=== PATIENT | female | born 1990 | race Caucasian/White ===

== ENCOUNTER 2016-11-10 14:21 | Emergency (ER) | payer SELFPAY ==
[~2016-11-10] VITALS: Ht 160 cm; Wt 72.0 kg
[~2016-11-10 14:21] MED LIST: IBUPROFEN600 MG PO; PRE-NATAL PO
[2016-11-10 15:00] LABS: URINE BILIRUBIN - DIPSTICK NEGATIVE (NEGATIVE); URINE BLOOD DIPSTICK TRACE-INTACT (NEGATIVE); URINE CLARITY CLEAR; URINE COLOR YELLOW; URINE GLUCOSE - DIPSTICK NEGATIVE (NEGATIVE); URINE KETONE NEGATIVE (NEGATIVE); URINE LEUK ESTERASE TRACE (NEGATIVE); URINE NITRITE - DIPSTICK NEGATIVE (Negative); URINE PROTEIN - DIPSTICK NEGATIVE (NEG-TRACE); URINE SPECIFIC GRAVITY 1.025; URINE UROBILINOGEN - DIPSTICK 0.2 E.U./dL (0.2)
[2016-11-10 15:11] LABS: HEMATOCRIT 39.3 % (37.0-47.0); HEMOGLOBIN 13.4 g/dl (12.0-16.0); IMMATURE GRANULOCYTES 0.3 % (0.0-1.0); MEAN CELL VOLUME 88.9 fL CALC (80.0-100.0); MEAN CORPUSCULAR HGB 30.3 pG CALC (26.0-32.0); MEAN CORPUSCULAR HGB CONC 34.1 g/L CALC (32.0-36.0); NEUT# 4.32 thou/uL (2.00-7.15); RED BLOOD COUNT 4.42 mill/uL (4.20-5.60); RED CELL DISTRI WIDTH 13.2 % (11.5-15.5)
[2016-11-10 15:14] LABS: ALBUMIN 4.3 g/dL (3.2-5.0); ALKALINE PHOSPHATASE 66 u/l (38-126); ANION GAP 16 (6-22 (CALC)); BILIRUBIN, TOTAL 0.5 mg/dL (0.0-1.4); BUN 11 mg/dL (7-17); BUN/CREATININE RATIO 15 (12-20 (CALC)); CALCIUM 9.4 mg/dL (8.4-10.2); CARBON DIOXIDE 21 mmol/l (22-30); CHLORIDE 109 mmol/l (95-108); CREATININE 0.8 mg/dL (0.5-1.0); GFR > 60 ML/MIN (>=60 (CALC)); GFR FOR AFR.AMER. > 60 ML/MIN (>=60 (CALC)); GLUCOSE 87 mg/dL (65-105); POTASSIUM 3.9 mmol/l (3.5-5.1); SGOT/AST 16 u/l (14-36); SGPT/ALT 28 u/l (9-52); SODIUM 142 mmol/l (137-146); TOTAL PROTEIN 7.3 g/dL (6.3-8.2)
[2016-11-10 15:26] LABS: MYOGLOBIN 20 ng/mL (0 - 62)
[2016-11-10 15:45] VITALS: BP 140/97
== END 2016-11-10 15:49 | disposition home or self-care (01) | DRG 312 ==
LOC: ED 14:21
PROVIDERS: Emergency Medicine
DX: R55 Syncope and collapse (principal); F17.210 Nicotine dependence, cigarettes, uncomplicated; R07.9 Chest pain, unspecified; Z73.3 Stress, not elsewhere classified; R06.02 Shortness of breath; Y92.009 Unspecified place in unspecified non-institutional (private) residence as the place of occurrence of the external cause

== ENCOUNTER 2017-08-12 10:56 | Emergency (ER) | payer SELFPAY ==
[~2017-08-12] VITALS: Ht 160 cm; Wt 77.6 kg
[2017-08-12 11:39] LABS: URINE BACTERIA FEW hpf; URINE BILIRUBIN - DIPSTICK NEGATIVE (NEGATIVE); URINE BLOOD DIPSTICK LARGE (NEGATIVE); URINE CLARITY HAZY; URINE COLOR DK. YELLOW; URINE EPITHELIAL CELLS FEW EPI/hpf (0-FEW); URINE GLUCOSE - DIPSTICK NEGATIVE (NEGATIVE); URINE KETONE NEGATIVE (NEGATIVE); URINE LEUK ESTERASE SMALL (NEGATIVE); URINE NITRITE - DIPSTICK NEGATIVE (Negative); URINE PROTEIN - DIPSTICK NEGATIVE (NEG-TRACE); URINE RBC 25-50 RBC/hpf (0-5); URINE UROBILINOGEN - DIPSTICK 0.2 E.U./dL (0.2)
[2017-08-12 11:50] LABS: HEMOGLOBIN 12.6 g/dl (12.0-16.0); IMMATURE GRANULOCYTES 0.3 % (0.0-1.0); MEAN CELL VOLUME 91.8 fL CALC (80.0-100.0); MEAN CORPUSCULAR HGB 30.4 pG CALC (26.0-32.0); MEAN CORPUSCULAR HGB CONC 33.2 g/L CALC (32.0-36.0); RED BLOOD COUNT 4.14 mill/uL (4.20-5.60); RED CELL DISTRI WIDTH 13.3 % (11.5-15.5)
[2017-08-12] MEDS ORDERED: KEFLEX500 M1 PO (13:35)
[2017-08-12 13:55] VITALS: BP 136/83
== END 2017-08-12 13:55 | disposition home or self-care (01) | DRG 690 ==
LOC: ED 10:56
DX: N39.0 Urinary tract infection, site not specified (principal); N92.0 Excessive and frequent menstruation with regular cycle

== ENCOUNTER 2018-07-11 13:12 | Emergency (ER) | payer OTHER ==
[~2018-07-11 13:12] MED LIST changes: +KEFLEX500 M1 PO
== END 2018-07-11 13:47 | disposition left against medical advice (07) | DRG 951 ==
LOC: ED 13:12 → LWOBS 13:47
DX: Z91.19 Patient's noncompliance with other medical treatment and regimen (principal)

== ENCOUNTER 2018-09-06 20:53 | Emergency (ER) | payer OTHER ==
[~2018-09-06] VITALS: Ht 160 cm; Wt 72.0 kg
[2018-09-06 22:02] LABS: HEMATOCRIT 29.6 % (37.0-47.0); HEMOGLOBIN 10.2 g/dl (12.0-16.0); IMMATURE GRANULOCYTES 0.8 % (0.0-5.0); MEAN CELL VOLUME 93.4 fL CALC (80.0-100.0); MEAN CORPUSCULAR HGB 32.2 pG CALC (26.0-32.0); MEAN CORPUSCULAR HGB CONC 34.5 g/L CALC (32.0-36.0); NEUT# 5.1 thou/uL (2.00-7.15); RED BLOOD COUNT 3.17 mill/uL (4.20-5.60); RED CELL DISTRI WIDTH 12.8 % (11.5-15.5)
[2018-09-06 22:22] LABS: ALKALINE PHOSPHATASE 75 u/l (38-126); ANION GAP 11 (6-22 (CALC)); BILIRUBIN, TOTAL 0.3 mg/dL (0.0-1.4); BUN 7 mg/dL (7-17); BUN/CREATININE RATIO 16 (12-20 (CALC)); CARBON DIOXIDE 20 mmol/l (22-30); CHLORIDE 109 mmol/l (95-108); CREATININE 0.5 mg/dL (0.5-1.0); GFR > 60 ML/MIN (>=60 (CALC)); GFR FOR AFR.AMER. > 60 ML/MIN (>=60 (CALC)); POTASSIUM 3.5 mmol/l (3.5-5.1); SGOT/AST 12 u/l (14-36); SODIUM 137 mmol/l (137-146)
[2018-09-06 22:25] LABS: TOTAL PROTEIN 5.7 g/dL (6.3-8.2)
[2018-09-06 22:39] LABS: URINE BILIRUBIN - DIPSTICK NEGATIVE (NEGATIVE); URINE BLOOD DIPSTICK NEGATIVE (NEGATIVE); URINE COLOR YELLOW; URINE GLUCOSE - DIPSTICK NEGATIVE (NEGATIVE); URINE KETONE TRACE mg/dL (NEGATIVE); URINE LEUK ESTERASE NEGATIVE (NEGATIVE); URINE NITRITE - DIPSTICK NEGATIVE (Negative); URINE PH 6.5 (4.5-8.0); URINE PROTEIN - DIPSTICK NEGATIVE (NEG-TRACE)
[2018-09-06] MEDS ORDERED: HYDROXYZ HCL25 MG PO (23:22)
[2018-09-06 23:35] VITALS: BP 98/67
== END 2018-09-06 23:35 | disposition home or self-care (01) ==
LOC: ED 20:53
PROVIDERS: Family Medicine
DX: O26.892 Other specified pregnancy related conditions, second trimester (principal); F41.9 Anxiety disorder, unspecified; R07.89 Other chest pain; R55 Syncope and collapse; R10.2 Pelvic and perineal pain; R42 Dizziness and giddiness; Z3A.25 25 weeks gestation of pregnancy

== ENCOUNTER 2018-12-09 08:51 | Emergency (ER) | payer OTHER ==
[~2018-12-09] VITALS: Ht 160 cm; Wt 171.0 kg
[~2018-12-09 08:51] MED LIST changes: +HYDROXYZ HCL25 MG PO
[2018-12-09 08:55] VITALS: BP 127/80
[2018-12-09] MEDS ORDERED: OB COMPLET2 PO (09:15)
== END 2018-12-09 09:23 ==
LOC: ED 08:51
DX: O26.893 Other specified pregnancy related conditions, third trimester (principal); Z3A.38 38 weeks gestation of pregnancy; M54.9 Dorsalgia, unspecified

== ENCOUNTER 2020-04-07 11:11 | Emergency (ER) | payer OTHER ==
[~2020-04-07] VITALS: Ht 160 cm; Wt 80.0 kg
[~2020-04-07 11:11] MED LIST changes: +OB COMPLET2 PO
[2020-04-07 12:30] VITALS: BP 130/91
== END 2020-04-07 12:30 | disposition home or self-care (01) ==
LOC: ED 11:11
DX: O26.893 Other specified pregnancy related conditions, third trimester (principal); N89.8 Other specified noninflammatory disorders of vagina; R10.9 Unspecified abdominal pain; Z3A.40 40 weeks gestation of pregnancy

== ENCOUNTER 2020-04-27 07:49 | Emergency (ER) | payer OTHER ==
[~2020-04-27] VITALS: Ht 160 cm; Wt 70.5 kg
[2020-04-27] MEDS ORDERED: PENICILLIN V P500 MG PO (08:01)
[2020-04-27 08:14] VITALS: BP 151/88
== END 2020-04-27 08:22 | disposition home or self-care (01) ==
LOC: ED 07:49
DX: K08.89 Other specified disorders of teeth and supporting structures (principal)

== ENCOUNTER 2020-07-11 | Emergency (ER) | payer OTHER ==
[~2020-07-11] MED LIST changes: +PENICILLIN V P500 MG PO
[2020-07-12] MEDS ORDERED: NASONEX50 MCG/ACT NAB (00:29)
== END 2020-07-12 00:53 | disposition home or self-care (01) ==
DX: J06.9 Acute upper respiratory infection, unspecified (principal); Z20.822 Contact with and (suspected) exposure to COVID-19